=== PATIENT | male | born 1980 | race Caucasian/White ===

== ENCOUNTER 2020-03-18 18:15 | Inpatient (IN) | payer OTHER, SELFPAY ==
[2020-03-18] VITALS (49 sets, daily range): BP systolic 115–176; BP diastolic 74–111; PULSE 67–122; RESP 13–28; TEMP 36.8–37.1; O2SAT 92–100; BMI 32.5
--- NOTE | 2020-03-18 18:18 | ECG_ITS ---
Measurements Intervals [place] Rate: 75 P: 36 IL: 149 QRS: 3 QRSD: 104 T: 19 QT: 386 QTc: 433 SINUS RHYTHM Compared to ECG 09/16/2019 06:41:56 Atrial fibrillation no longer present Electronically Signed On 03-19-2020 14:58:50 CDT by Ra Masters M.D. [email or web address]
--- NOTE | 2020-03-18 18:25 | ED_ITS ---
HPI - Psych General: Chief Complaint: Psychiatric Symptoms Stated Complaint: SUICIDE ATTEMPT Time Seen by Provider: 03/18/20 18:18 Source: EMS Mode of arrival: EMS Limitations: other (not cooperative) History of Present Illness: HPI Narrative: Patient is a 40-year-old with history of alcoholism. Patient's found out he was having an affair and she moved out last night. Patient got drunk today and sent out a mass texting using to kill himself. EMS was called he was found with an extension cord around his neck and he stated he had taken pills to kill himself. Patient will not say how many pills or what he took. Patient will not answer any my questions. He is awake and responsive. He did have metoprolol along with Prozac and lisinopril available and all pill bottles do have pills in them. Review of Systems General: Reports: ROS unobtainable due to medical condition PFSH ED PFSH: Social History Smoking and tobacco status: current every day smoker Physical Exam Const: GENERAL APPEARANCE: disheveled; not cooperative HENMT: COMMON NORMALS: normocephalic and head/scalp atraumatic HEAD & SCALP: normocephalic and atraumatic Eye: COMMON NORMALS: PERRL and EOMs intact bilaterally PUPIL: Yes PERRL Neck/C-Spine: COMMON NORMALS: full ROM and supple OTHER: Slight contusion to his neck no carotid bruits noted Chest: COMMONS NORMALS: inspection of chest normal and palpation of chest normal Resp: COMMON NORMALS: normal respiratory effort, no retractions, no use of accessory muscles and clear to auscultation bilaterally AUSCULTATION: clear to auscultation bilaterally Cardio: COMMON NORMALS: regular rate, regular rhythm and no murmurs RATE: regular rate RHYTHM: regular rhythm GI: COMMON NORMALS: normal to inspection, nondistended, normoactive bowel sounds, soft to palpation, non-tender and no masses PALPATION: Yes soft Extremity: COMMON NORMALS: normal to inspection and full ROM Neuro: COMMON NORMALS: moves all extremities and no focal motor deficits Psych: APPEARANCE: Yes disheveled ATTITUDE: Yes withdrawn, Yes uncooperative and Yes evasive Skin: COMMON NORMALS: no rashes or lesions noted and no wounds GENERAL SKIN EXAM: no rashes or lesions noted MDM - Psych MDM Narrative: Medical decision making narrative: Patient presents here with alcohol talks occasionally with overdose in an attempt to kill himself. Patient is under a 96-hour hold. He will not state how many pills he took and will admit to the ICU for further evaluation. Patient's lab work and vitals here are all normal. Lab Data: Labs: Lab Results 03/18/20 03/18/20 Range/Units 18:04 18:04 WBC 9.1 (4.0-10.0) 10^3/ uL RBC 5.39 H (4.1-5.3) 10^6/u L Hgb 17.6 H (11.7-16.6) g/dL Hct 50.2 (42.0-52.0) % MCV 93.1 (80-94) fL MCH 32.7 (28.0-34.0) pg MCHC 35.1 (30.0-36.0) g/dL RDW 12.4 (12.1-15.1) % Plt Count 160 (130-400) 10^3/c mm MPV 11.2 H (7.4-10.4) fL Neut % (Auto) 68.3 % Lymph % (Auto) 24.4 % [place] % (Auto) 5.7 % Eos % (Auto) 0.9 % Baso % (Auto) 0.4 % Neut # (Auto) 6.2 (1.8-7.7) 10^3/u L Lymph # (Auto) 2.2 (0.8-4.8) 10^3/u L [place] # (Auto) 0.5 (0.2-0.9) 10^3/u L Eos # (Auto) 0.1 (0.0-0.8) 10^3/u L Baso # (Auto) 0.0 (0.0-0.1) 10^3/u L Nucleated RBC % (a uto) 0 % Nucleated RBCs # 0.0 /100WBC Sodium 137 (136-145) mmol/L Potassium 3.4 L (3.5-5.1) mmol/L Chloride 97 L (98-107) mmol/L Carbon Dioxide 22 (22-29) mmol/L Anion Gap 21.4 H (5-19) BUN 11 (6-20) mg/dL Creatinine 1.1 (0.7-1.2) mg/dL GFR Calculation 74.1 L (90-130) mL/min Glucose 118 H (65-115) mg/dL Calculated Osmolal ity 281 L (285-295) mOsm/k g Calcium 9.3 (8.5-10.5) mg/dL Total Bilirubin 0.4 (0.15-1.2) mg/dL AST 28 (0-40) U/L ALT 26 (0-41) U/L Alkaline Phosphata se 66 (40-130) IU/L Total Protein 7.5 (6.6-8.7) g/dL Albumin 4.6 (3.5-5.2) g/dL Globulin 2.9 (1.3-4.6) g/dL Salicylates < 0.3 L (3-10) mg/dL Acetaminophen < 5.0 L (10-30) ug/mL Ethyl Alcohol 361 H* (0-10) mg/dL Critical Care Time Critical Care Time: Critical Care Time: Yes Total Critical Care Time: 36 Attestation: This case had a high probability of a clinically significant, sudden, or life threatening deterioration of this patient's condition which required my full and direct attention, intervention and personal management. Discharge Plan Discharge Clinical Impression: Suicidal ideation, Overdose, Alcohol intoxication Condition: Stable Prescriptions: No Action metoprolol tartrate 50 mg tablet RF: 0 paroxetine HCl 20 mg tablet PO RF: 0 Referrals: Cody Pickens MD [Primary Care Provider] - Coding Level of Care Code ED Supervisor Malted Milk for g Fwd Exam Comprehensive
[2020-03-18 18:37] LABS: Basophils % 0.4 %; Eosinophils # 0.1 10^3/uL (0.0-0.8); Eosinophils % 0.9 %; Hematocrit 50.2 % (42.0-52.0); Hemoglobin 17.6 g/dL (11.7-16.6); Lymphocytes # 2.2 10^3/uL (0.8-4.8); Lymphocytes % 24.4 %; Mean Corpuscular HGB Conc 35.1 g/dL (30.0-36.0); Mean Corpuscular Hemoglobin 32.7 pg (28.0-34.0); Mean Corpuscular Volume 93.1 fL (80-94); Mean Platelet Volume 11.2 fL (7.4-10.4); Monocytes # 0.5 10^3/uL (0.2-0.9); Monocytes % 5.7 %; Neutrophils # 6.2 10^3/uL (1.8-7.7); Neutrophils % 68.3 %; Nucleated Red Blood Cells % 0 %; Platelet Count 160 10^3/cmm (130-400); Red Blood Count 5.39 10^6/uL (4.1-5.3); Red Cell Distribution Width 12.4 % (12.1-15.1); White Blood Count 9.1 10^3/uL (4.0-10.0)
[2020-03-18 19:00] LABS: Alanine Aminotransferase 26 U/L (0-41); Albumin Level 4.6 g/dL (3.5-5.2); Alkaline Phosphatase 66 IU/L (40-130); Anion Gap 21.4 (5-19); Aspartate Amino Transferase 28 U/L (0-40); Blood Urea Nitrogen 11 mg/dL (6-20); Calcium 9.3 mg/dL (8.5-10.5); Carbon Dioxide 22 mmol/L (22-29); Chloride 97 mmol/L (98-107); Creatinine Clr Calc Pharmacy 103.9596; Globulin 2.9 g/dL (1.3-4.6); Glomerular Filtration Rate 74.1 mL/min (90-130); Glucose 118 mg/dL (65-115); Osmolality Calculated 281 mOsm/kg (285-295); Potassium 3.4 mmol/L (3.5-5.1); Sodium 137 mmol/L (136-145); Total Bilirubin 0.4 mg/dL (0.15-1.2); Total Protein 7.5 g/dL (6.6-8.7)
[2020-03-18 19:13] LABS: Acetaminophen < 5.0 ug/mL (10-30); Salicylate < 0.3 mg/dL (3-10)
[2020-03-18 19:14] LABS: Alcohol Level 361 mg/dL (0-10)
[2020-03-18] MEDS: sodium chloride 0.9% 1,000 ML 999 ML IV (19:42)
[2020-03-18 20:29] LABS: Amphetamines Screen Urine Negative (Negative); Barbiturates Screen Urine Negative (Negative); Benzodiazepines Screen Urine Negative (Negative); Cocaine Screen Urine Negative (Negative); Opiate Screen Urine Negative (Negative); PCP Screen Urine Negative (Negative); THC Screen Urine Negative (Negative)
--- NOTE | 2020-03-18 20:57 | PC.NURSE ---
Pt. transported to ICU by RN and security. Calm, cooperative and stable
[2020-03-18] MEDS: folic acid 1 MG, multivitamin inj 10 ML, thiamine 100 MG in sodium chloride 0.9% 1,000 ML 252.8 MG IV (22:24)
[2020-03-19] VITALS (77 sets, daily range): BP systolic 103–166; BP diastolic 62–109; PULSE 74–112; RESP 14–26; TEMP 36.6–37.1; O2SAT 93–100
[2020-03-19 04:48] LABS: Basophils % 0.9 %; Eosinophils # 0.1 10^3/uL (0.0-0.8); Eosinophils % 2.8 %; Hematocrit 46.7 % (42.0-52.0); Hemoglobin 15.9 g/dL (11.7-16.6); Lymphocytes # 1.8 10^3/uL (0.8-4.8); Lymphocytes % 41.3 %; Mean Corpuscular Hemoglobin 31.7 pg (28.0-34.0); Mean Corpuscular Volume 93.2 fL (80-94); Mean Platelet Volume 11.1 fL (7.4-10.4); Monocytes # 0.4 10^3/uL (0.2-0.9); Monocytes % 9.6 %; Neutrophils # 1.9 10^3/uL (1.8-7.7); Neutrophils % 44.9 %; Nucleated Red Blood Cells % 0 %; Platelet Count 142 10^3/cmm (130-400); Red Blood Count 5.01 10^6/uL (4.1-5.3); Red Cell Distribution Width 12.6 % (12.1-15.1); White Blood Count 4.3 10^3/uL (4.0-10.0)
[2020-03-19 05:12] LABS: Alanine Aminotransferase 21 U/L (0-41); Alcohol Level 170 mg/dL (0-10); Alkaline Phosphatase 58 IU/L (40-130); Anion Gap 17.6 (5-19); Aspartate Amino Transferase 22 U/L (0-40); Blood Urea Nitrogen 12 mg/dL (6-20); Calcium 8.9 mg/dL (8.5-10.5); Carbon Dioxide 23 mmol/L (22-29); Chloride 105 mmol/L (98-107); Creatinine Clr Calc Pharmacy 103.9596; Globulin 2.2 g/dL (1.3-4.6); Glomerular Filtration Rate 74.1 mL/min (90-130); Glucose 100 mg/dL (65-115); Osmolality Calculated 290 mOsm/kg (285-295); Potassium 3.6 mmol/L (3.5-5.1); Sodium 142 mmol/L (136-145); Total Bilirubin 0.2 mg/dL (0.15-1.2); Total Protein 6.2 g/dL (6.6-8.7)
--- NOTE | 2020-03-19 06:42 | P.HP_ITS ---
Providers/Chief Complaint Admitting Physician: Kain Recinos MD Primary Care Provider: Cody Pickens MD Chief Complaint: SUICIDE ATTEMPT History of Present Illness Tina Barbour is a 40 year old male who presented to the emergency department after concern for a suicide attempt. Per records, the patient's had decided to leave him after she found out that he had been with somebody else. Because of this the patient drank approximately 1 pint of vodka and sent out a mass text saying that he wanted to kill himself. The patient was found with access lisinopril, metoprolol and fluoxetine. There were pills in all 3 bottles still. The patient had an electrical cord wrapped around his neck. A 96-hour hold was placed due to concern that the patient was suicidal. This morning the patient states that he feels well. He does not want to talk with me about what had been going on. The patient denies that he took any pills. The patient admitted to drinking 1 pint of vodka. The patient denies any chest pains, shortness of breath, fever, cough, abdominal pain, nausea, vomiting, diarrhea, constipation. Medications/Allergies Home Medications Medication Instructions Recorded Confirmed Last Taken Type aspirin 81 mg PO DAILY 03/18/20 03/18/20 Unknown History metoprolol tartrate 50 mg PO QAM 03/18/20 03/18/20 Unknown History paroxetine HCl 20 mg PO DAILY 03/18/20 03/18/20 Unknown History Allergies Allergy/AdvReac Type Severity Reaction Status Date / Time No Known Allergies Allergy Verified 03/18/20 18:22 PFSH Acute PFSH: Medical History (Updated 03/19/20 @ 06:46 by Kain Recinos MD) History of atrial fibrillation Surgical History (Updated 03/19/20 @ 06:46 by Kain Recinos MD) H/O vasectomy Social History Smoking and tobacco status: current every day smoker Vitals/I&O/Wt Last Vital Signs Temp 98.5 F 03/19/20 04:15 Pulse 97 03/19/20 05:50 Resp 16 03/19/20 05:50 BP 113/62 03/19/20 05:50 Pulse Ox 100 03/19/20 01:00 03/18/20 03/18/20 03/19/20 14:59 22:59 06:59 Intake Total 1000 / 1000 570 / 1570 Output Total 850 / 850 Balance 1000 / 1000 -280 / 720 Weight last 48 hrs Weight 220 lb Physical Exam Narrative: EXAM NARRATIVE: General: Alert and oriented x3 Cardiac: Regular rate and rhythm without murmurs Lungs: Clear to auscultation bilaterally without wheezes, crackles or rhonchi Abdomen: Soft, nontender, no hepatosplenomegaly noted Extremities: No edema Psychiatric: The patient is withdrawn, and does not want to talk with me at this time regarding what has been going on. The patient is cooperative otherwise. Data : 03/19/20 04:10 03/19/20 04:10 A&P Assessment and plan (1) Hypertension: Status: Acute (2) Suicidal ideation: Status: Acute (3) Overdose: Status: Acute Qualifiers: Encounter type: initial encounter Injury intent: intentional self-harm Qualified Code(s): T50.902A - Poisoning by unspecified drugs, medicaments and biological substances, intentional self-harm, initial encounter (4) Alcohol intoxication: Status: Acute Additional A&P Information 1. Suicidal ideation -the patient has had a 96-hour hold placed on him from the ER. I am in agreement that he will need to be transferred to the psychiatric unit for further evaluation and treatment. He should be stable to transfer at this time. 2. Alcohol intoxication with alcoholism -the patient's alcohol levels are decreasing well and with his history of alcoholism, he should be watched in general for signs of withdrawal. Currently he is not showing no signs. 3. Possible overdose -at this time the patient is not showing signs of metoprolol overdose. I do not see other signs of fluoxetine overdose. His blood pressure is not soft enough for me to think that he overdosed on lisinopril either. He should be stable to transfer. 4. Hypertension -stable at this time. 5. History of atrial fibrillation -the patient has a history of A. fib and was converted into a sinus rhythm in August 2019. He is currently in a normal sinus rhythm with tachycardia. We will restart his metoprolol this morning. Overall his heart rate is in the low 100s at this time. This should not prevent him from transferring to inpatient psychiatry at this point. Attestations Medical Necessity Statement*: The patient is here in the ICU currently and will be transferred to the inpatient psychiatry today. He requires greater than 2 midnight stay for treatment. Coding Level of Care Code Acute Environmental Services Supervisor for g Fwd Diagnoses Hypertension I10 Suicidal ideation R45.851 Overdose T50.902A Encounter type: initial encounter Injury intent: intentional self-harm Alcohol intoxication F10.924
[2020-03-19] MEDS: metoprolol tartrate 50 mg Tablet 75 MG PO ×2 (06:47→17:02)
[2020-03-19] MEDS: multivitamin therapeutic Tablet 1 TAB PO (08:21)
[2020-03-19] MEDS: aspirin 81 mg EC Tablet PO (08:21)
[2020-03-19] MEDS: folic acid 1 mg Tablet PO (08:21)
[2020-03-19] MEDS: PARoxetine 20 mg Tablet PO (08:21)
[2020-03-19] MEDS: thiamine 100 mg Tablet PO (08:23)
--- NOTE | 2020-03-19 09:33 | PC.NURSE ---
Pt transferring to NPU room 150-1 via wc with personal belongings. Security and sitter at side. No complaints voiced at time of transfer. Report called to PIYUSH Beasley.
[2020-03-20 06:00] VITALS: BP 145/96; PULSE 74; RESP 16; TEMP 37.1; O2SAT 97
[2020-03-20 06:23] VITALS: BP 139/92; PULSE 79; RESP 17; TEMP 37.1; O2SAT 97
--- NOTE | 2020-03-20 07:54 | PM.NHP ---
Providers/Chief Complaint Admitting Physician: Kain Recinos MD Primary Care Provider: Cody Pickens MD Chief Complaint: SUICIDE ATTEMPT HPI NPU History of Present Illness Tina Barbour is a 40 year old male who presents today being transferred from another unit, after being admitted with intoxication and having sent out a mass text that he was going to kill himself. This is his second hospitalization after a significant drinking episode. The last time he was in the ICU secondary to his Afib acting up. 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 At that time, he acknowledged his depression and he was started on Prozac, but he was never able to get to an outpatient appointment to have the Prozac increased. He had previously been on Paxil with no significant improvement. That had also not be titrated due to outpatient resources in the community. He reports that he had not had significant psychiatric interventions throughout his life until about 2000. He had a child that was one and a [age], and he woke up and noted that his child was kind of purple, so he came to the emergency room and was evaluated, they could not figure out what was going on and he was air lifted to [place]. After about a month he was noted to have encephalitis and meningitis and. ultimately, they took him off of supportive treatments and he . He reports that for the first time in his life he started drinking and that escalated until about 2008, at which time he did go to a rehab and was able to stop drinking until about 2012. He then started drinking again, off and on, until he stopped again a few years ago. But since 2018, he has been back at it, not drinking daily but he acknowledges that when he drinks he does really ?tie one on.? That has been a problem and created a problem in his marriage. But what has led to this event today was he had fallen asleep and his had discovered pictures from a person that works with him at the [employer], who had sent him pictures, and he had responded to the pictures. He swears that there has been nothing other than this exchange of pictures, but that his saw it and yelled at him and went to work. She came back and continued yelling at him and then when she left for work this last time, he started drinking and then this event where he sent a mass text saying he was going to kill himself occurred, and that is what brings him here today. He reports that he has been feeling depressed, and there is a lot of stress at work, especially given the current circumstances, but overall as well. We discussed the risks, benefits, and alternatives of increasing his Prozac, and he understood and agreed to proceed as is documented in this note. PSYCHIATRIC HISTORY: As above. SUBSTANCE ABUSE HISTORY: He does smoke about a half pack of cigarettes a day. Now alcohol is once every two weeks, or maybe once a week, depending on the situation, but when he drinks he drinks heavily. This event his blood alcohol level was 361. He denies marijuana, or any other illicit drug use. He has been to a couple of rehabs. He has had one DUI. FAMILY HISTORY: He endorses non-contributory. DEVELOPMENTAL HISTORY: He denies any issues with his mother?s or delivery of him. He learned how to walk and talk and met all developmental milestones on time. He reports that he did not need speech therapy, learning support, emotional support, or special education classes. PSYCHOSOCIAL HISTORY: He reports his mom and dad were together when he was born. He does have siblings. His childhood was decent. He graduated from high school. He went to college. He endorses being a heterosexual, with the longest relationship being about twenty one years, at the end of this year. He has been once. He has had two children, one who in 2000 and would be almost 21 years old, and they have a 17 year old. He has never been in the . He denies significant anglican activity. 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 He currently lives in a house with his and child. LEGAL HISTORY: He has never been in [facility]. MEDICAL HISTORY: He denies any significant medical issues. Meds NPU Home Medications Medication Instructions Recorded Confirmed Last Taken Type aspirin 81 mg PO DAILY 03/18/20 03/18/20 Unknown History metoprolol tartrate 50 mg PO QAM 03/18/20 03/18/20 Unknown History paroxetine HCl 20 mg PO DAILY 03/18/20 03/18/20 Unknown History Allergies Allergy/AdvReac Type Severity Reaction Status Date / Time No Known Allergies Allergy Verified 03/18/20 18:22 PFSH NPU PFSH: Medical History (Updated 03/21/20 @ 10:13 by Boris Cabrera MD) History of atrial fibrillation Surgical History (Updated 03/19/20 @ 06:46 by Kain Recinos MD) H/O vasectomy Social History Smoking and tobacco status: current every day smoker Mental Status Exam MSE Comments: This is an obese, white male, with adequate dress, grooming, and eye contact. No abnormal movements, except for psychomotor retardation. Cooperative with exam in no acute distress. Speech was normal rate and volume. Mood described as depressed; affect congruent. Thought process, organized. Thought content: patient denied any suicidal or homicidal ideation, there were no delusions reported or noted, patient denied any auditory or visual hallucinations. Attention, concentration, and memory appear intact but were not formally tested. He is alert and oriented times three. Insight and judgment are improving. Vitals/I&O/Wt Last Vital Signs Temp 99.8 F H 03/20/20 22:00 Pulse 68 03/20/20 22:00 Resp 20 H 03/20/20 22:00 BP 147/101 03/20/20 22:00 Pulse Ox 97 03/20/20 22:00 Data NPU : 03/19/20 04:10 03/19/20 04:10 A&P Assessment and plan (1) Alcohol use disorder, moderate, dependence: This is a 40 year old, white male, with a long history of alcohol addiction, since the of his son in 2000, with accompanying depression for much of that time, who presents with a conflict surrounding some infidelity at home, leading to drinking behavior and additional conflicts. Continue current medication, except: Increase Prozac to 40 mg po qam. Encourage individual and milieu therapy. Continue q-15 minute checks for safety. Will work with social work team to encourage outpatient recovery programming, including sober living treatment at the highest level to which he is willing to commit. Status: Acute (2) Alcohol intoxication: Status: Acute (3) Overdose: Status: Acute Qualifiers: Encounter type: initial encounter Injury intent: intentional self-harm Qualified Code(s): T50.902A - Poisoning by unspecified drugs, medicaments and biological substances, intentional self-harm, initial encounter (4) Suicidal ideation: Status: Acute (5) Major depress dis, severe: Status: Acute (6) Bereavement: Status: Acute Involuntary Hold Information 96 Hour Hold: 96 Hour Involuntary Admission: Yes 96 Hour Hold Ending Date: 03/24/20 96 Hour Hold Ending Time: 18:35 Attestations NPU Medical Necessity Statement*: Inpatient hospitalization is medically necessary and the clinically appropriate intervention at this time. Patient will be in the hospital for over two midnights. We will monitor medications and make adjustments as indicated. Likely length of stay is three to five days. Coding Level of Care Code Acute Information Security Specialist for Abida Fwd Diagnoses Alcohol use disorder, moderate, dependence F10.20 Alcohol intoxication F10.929 Overdose T50.902A Encounter type: initial encounter Injury intent: intentional self-harm Suicidal ideation R45.851 Major depress dis, severe F32.2 Bereavement Z63.4
[2020-03-20] MEDS: metoprolol tartrate 50 mg Tablet 75 MG PO ×2 (08:45→17:29)
[2020-03-20] MEDS: thiamine 100 mg Tablet PO (08:45)
[2020-03-20] MEDS: aspirin 81 mg EC Tablet PO (08:45)
[2020-03-20] MEDS: folic acid 1 mg Tablet PO (08:45)
[2020-03-20] MEDS: PARoxetine 20 mg Tablet PO (08:48)
[2020-03-20] MEDS: fluoxetine 20 mg Capsule PO (11:23)
[2020-03-20 13:30] VITALS: BP 149/99; PULSE 70; RESP 18; TEMP 37; O2SAT 98
[2020-03-20] MEDS: trazodone 50 mg Tablet PO (20:45)
[2020-03-20] MEDS: hyDROXYzine 25 mg Capsule 50 MG PO (20:45)
--- NOTE | 2020-03-20 21:10 | PC.NURSE ---
PRN Vistaril and Trazadone given. Patient sitting in day room currently, calm and relaxed.
[2020-03-20 22:00] VITALS: BP 147/101; PULSE 68; RESP 20; TEMP 37.7; O2SAT 97
[2020-03-21 06:00] VITALS: BP 145/102; PULSE 62; RESP 18; TEMP 36.8; O2SAT 97
[2020-03-21] MEDS: fluoxetine 20 mg Capsule 40 MG PO (09:17)
[2020-03-21] MEDS: thiamine 100 mg Tablet PO (09:17)
[2020-03-21] MEDS: metoprolol tartrate 50 mg Tablet 75 MG PO ×2 (09:17→17:36)
[2020-03-21] MEDS: multivitamin therapeutic Tablet 1 TAB PO (09:19)
[2020-03-21] MEDS: folic acid 1 mg Tablet PO (09:19)
[2020-03-21] MEDS: PARoxetine 20 mg Tablet PO (09:19)
[2020-03-21] MEDS: aspirin 81 mg EC Tablet PO (09:19)
[2020-03-21 12:51] VITALS: BP 103/61; PULSE 74; RESP 18; TEMP 37; O2SAT 97
--- NOTE | 2020-03-21 13:33 | P.PN_ITS ---
Subjective NPU Subjective: Interval history: Tina presented today reporting that he is feeling better. He reports that he was able to speak with his and she reports that she wants to work things out with him, and that makes him happy. We had a conversation about his struggles with drinking and how he plans on managing that after discharge. He really was not sure exactly. We discussed the risks, benefits and alternatives of starting Naltrexone and he understood and agreed to proceed as is documented in this note. Additionally, we discussed the risks, benefits and alternatives of discontinuing the Paxil which his doctor had re-prescribed, but they had not really pressed the dose of the Prozac so we discussed the plan to see if the Prozac could be titrated to efficacy first before mixing the two medications and so he understood and agreed to discontinue the Paxil. We also discussed how he was doing and discussed the possibility of discharge tomorrow if the treatment team convenes and we can get referrals and everything in place. Mental Status Exam MSE Comments: This is an obese, white male, with adequate dress, grooming, and eye contact. No abnormal movements. Cooperative with exam in no acute distress. Speech was more normal rate and volume. Mood described as a little better; affect congruent. Thought process, organized. Thought content: patient denied any suicidal or homicidal ideation, there were no delusions reported or noted, patient denied any auditory or visual hallucinations. Attention, concentration, and memory appeared intact but were not formally tested. Alert and oriented times three. Insight and judgment are improving. Vitals/I&O/Wt Last Vital Signs Temp 98.6 F 03/21/20 12:51 Pulse 74 03/21/20 12:51 Resp 18 03/21/20 12:51 BP 103/61 03/21/20 12:51 Pulse Ox 97 03/21/20 12:51 Weight last 48 hrs Weight 108.499 kg Data NPU : 03/19/20 04:10 03/19/20 04:10 A&P Additional A&P Information (1) Alcohol use disorder, moderate, dependence: This is a 40 year old, white male, with a long history of alcohol addiction, since the of his son in 2000, with accompanying depression for much of that time, who presents with a conflict surrounding some infidelity at home, leading to drinking behavior and additional conflicts. Continue current medication, except: Start Naltrexone 50 mg po qam. Encourage individual and milieu therapy. Continue q-15 minute checks for safety. Will work with social work team to encourage outpatient recovery programming, including sober living treatment at the highest level to which he is willing to commit. (2) Alcohol intoxication: (3) Overdose: (4) Suicidal ideation: (5) Major depress dis, severe: (6) Bereavement: Involuntary Hold Information 96 Hour Hold: 96 Hour Involuntary Admission: Yes 96 Hour Hold Ending Date: 03/24/20 96 Hour Hold Ending Time: 18:35 Attestations NPU Medical Necessity Statement*: Inpatient hospitalization is medically necessary and the clinically appropriate intervention at this time. We will monitor medications and make adjustments as indicated. Likely length of stay is 1-3 days. Possible discharge tomorrow. Coding Level of Care Code Acute Electric Gas Appliances Demonstrator for Abida William
[2020-03-21] MEDS: naltrexone hcl 50 mg Tablet PO (21:01)
[2020-03-21 21:25] VITALS: BP 112/84; PULSE 69; RESP 20; TEMP 37.3; O2SAT 95
--- NOTE | 2020-03-21 23:02 | PC.NURSE ---
Pt given scheduled naltrexone and trazodone at .
[2020-03-22 06:00] VITALS: BP 140/90; PULSE 66; RESP 17; TEMP 37; O2SAT 95
[2020-03-22] MEDS: aspirin 81 mg EC Tablet PO (08:42)
[2020-03-22] MEDS: naltrexone hcl 50 mg Tablet PO (08:42)
[2020-03-22] MEDS: folic acid 1 mg Tablet PO (08:42)
[2020-03-22] MEDS: thiamine 100 mg Tablet PO (08:42)
[2020-03-22] MEDS: fluoxetine 20 mg Capsule 40 MG PO (08:43)
[2020-03-22] MEDS: multivitamin therapeutic Tablet 1 TAB PO (08:43)
[2020-03-22] MEDS: metoprolol tartrate 50 mg Tablet 75 MG PO (08:43)
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
[2020-03-22 13:01] VITALS: BP 140/90; PULSE 66; RESP 17; TEMP 37; O2SAT 95
--- NOTE | 2020-03-22 13:10 | PC.NURSE ---
discharge instructions given to patient and patient verbalized understanding of instructions. patient said his gets off work at 1500.
== END 2020-03-22 14:58 | disposition home or self-care (01) | DRG 918 ==
LOC: ER 19:36 → ICU 20:20 → NP 03-19 09:27
PROVIDERS: Admitting Provider Family Medicine; Emergency Provider Emergency Medicine; Family Provider Family Medicine; PCP Family Medicine; Visit Provider Family Medicine
DX: T50.912A Poisoning by multiple unspecified drugs, medicaments and biological substances, intentional self-harm, initial encounter (principal); Y92.009 Unspecified place in unspecified non-institutional (private) residence as the place of occurrence of the external cause; F17.210 Nicotine dependence, cigarettes, uncomplicated; F32.9 Major depressive disorder, single episode, unspecified; F10.129 Alcohol abuse with intoxication, unspecified; Z91.5 Personal history of self-harm; I48.91 Unspecified atrial fibrillation
CPT/HCPCS: 12345; 80053; 80306; 80307; 85025; 93005; 99284; A9270; J3411; J3490; J7030

== ENCOUNTER → 2020-04-16 07:59 | Outpatient (BNVA) | payer OTHER, SELFPAY | PROVIDERS: Family Provider Family Medicine; PCP Family Medicine; Visit Provider Counselor Professional | DX: Z63.4 Disappearance and death of family member (principal); F10.20 Alcohol dependence, uncomplicated; F32.2 Major depressive disorder, single episode, severe without psychotic features | CPT/HCPCS: 90834 ==

== ENCOUNTER → 2024-05-28 11:27 | Outpatient (BNVA) | payer SELFPAY | PROVIDERS: Family Provider Family Medicine; PCP Family Medicine; Visit Provider Family Medicine | DX: I10 Essential (primary) hypertension (principal); R35.0 Frequency of micturition | CPT/HCPCS: 80053; 80061; 84153 ==

== ENCOUNTER 2024-08-16 07:13 | Inpatient (IN) | payer SELFPAY ==
[2024-08-16] VITALS (46 sets, daily range): BP systolic 85–150; BP diastolic 58–113; PULSE 67–113; RESP 12–25; TEMP 36.4–36.9; O2SAT 90–99; BMI 26.6
[2024-08-16 07:20] LABS: Glucose Point of Care 82 mg/dL (70-110)
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
--- NOTE | 2024-08-16 07:40 | CTR_ITS ---
PROCEDURE INFORMATION: Exam: CT Head Without Contrast Exam date and time: 08/16/2024 8:06 AM Age: 44 years old Clinical indication: Altered mental status/memory loss. TECHNIQUE: Imaging protocol: Computed tomography of the head without contrast. Radiation optimization: All CT scans at this facility use at least one of these dose optimization techniques: automated exposure control; mA and/or kV adjustment per patient size (includes targeted exams where dose is matched to clinical indication); or iterative reconstruction. COMPARISON: No relevant prior studies available. RADIATION DOSE METRICS: Total DLP (mGy-cm): 1078.68 FINDINGS: Brain: No acute intracranial hemorrhage. No mass, mass effect or midline shift. There is no evidence of acute large vessel infarct. The subcortical and periventricular white matter is normal in attenuation. The posterior fossa is grossly unremarkable; however, it is partially obscurred by beam hardening artifact. Cerebral ventricles: The ventricles are normal in configuration. Paranasal sinuses: The visualized paranasal sinuses are clear. Mastoid air cells: No mastoid effusion. Orbital cavities: The visualized orbits are unremarkable. Bones: No acute fracture is seen. Soft tissues: No significant scalp soft tissue swelling is seen. CT/CT head wo con* [id number] IMPRESSION: No acute intracranial abnormality.
[2024-08-16 07:45] LABS: Add Urine Microscopic? NO
[2024-08-16] MEDS: haloperidol inj 5 mg/mL INJ 1 mL IVP (07:46)
[2024-08-16] MEDS: LORazepam 2 mg/mL INJ 1 mL IVP (07:50)
--- NOTE | 2024-08-16 07:52 | ECG_ITS ---
[facility] Test Date: 2024-08-16 Pat Name: Tina Barbour Department: Room: 250 Gender: Male Academic Counselor: : 1980 Requested By: Himanshu Roberto Order Number: [id number] Kailey MD: Xavier Alejandra M.D. Measurements Intervals [place] Rate: 100 P: 39 IL: 107 QRS: 17 QRSD: 101 T: 41 QT: 356 QTc: 459 Interpretive Statements SINUS TACHYCARDIA WITH SHORT IL INTERVAL ABNORMAL RHYTHM ECG INTERPRETATION BASED ON A DEFAULT AGE OF 40 YEARS Compared to ECG 03/18/2020 19:47:42 Short IL interval now present Sinus rhythm no longer present Electronically Signed On 08-16-2024 20:04:02 CDT by Xavier Alejandra M.D. [id number]
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
[2024-08-16 07:58] LABS: Basophils % 0.8 %; Eosinophils # 0.1 10^3/uL (0.0-0.8); Eosinophils % 2.4 %; Hematocrit 53.2 % (37-53); Lymphocytes # 1.8 10^3/uL (0.8-4.8); Lymphocytes % 36.8 %; Mean Corpuscular HGB Conc 35.5 g/dL (30-55); Mean Corpuscular Hemoglobin 34.4 pg (27-33); Mean Corpuscular Volume 96.9 fl (82-101); Mean Platelet Volume 10.3 fL (7.4-10.4); Monocytes # 0.3 10^3/uL (0.2-0.9); Monocytes % 5.6 %; Neutrophils # 2.67 10^3/uL (1.8-7.7); Neutrophils % 53.8 %; Nucleated Red Blood Cells % 0 %; Platelet Count 146 10^3/cmm (157-399); Red Blood Count 5.49 10^6/uL (3.85-5.65); Red Cell Distribution Width 12.9 % (12.1-15.1); White Blood Count 4.97 10^3/uL (3.29-11.43)
[2024-08-16 08:01] LABS: Amphetamines Screen Urine Negative (Negative); Barbiturates Screen Urine Negative (Negative); Benzodiazepines Screen Urine Negative (Negative); Cocaine Screen Urine Negative (Negative); Opiate Screen Urine Negative (Negative); PCP Screen Urine Negative (Negative); THC Screen Urine Positive (Negative)
[2024-08-16 08:03] LABS: Alanine Aminotransferase 21 U/L (0-41); Albumin Level 4.4 g/dL (3.5-5.2); Alkaline Phosphatase 68 U/L (40-130); Anion Gap 17.4 (5-19); Aspartate Amino Transferase 23 U/L (0-40); Blood Urea Nitrogen 11 mg/dL (6-20); Calcium 8.5 mg/dL (8.5-10.5); Carbon Dioxide 25 mmol/L (22-29); Chloride 104 mmol/L (98-107); Creatinine Clr Calc Pharmacy 111.2279; Glomerular Filtration Rate 91.7 mL/min (90-130); Glucose 92 mg/dL (65-115); Osmolality Calculated 295 mOsm/kg (285-295); Sodium 143 mmol/L (136-145); Total Bilirubin 0.3 mg/dL (0.15-1.2); Total Protein 7.4 g/dL (6.6-8.7)
[2024-08-16 08:03] LABS: Bilirubin Urine Neg (Negative); Blood Urine Neg (Negative); Glucose Urine UA Norm (Normal); Ketones Urine Negative (Negative); Leukocyte Esterase Urine Negative (Negative); Nitrate Urine Negative (Negative); Protein Urine Neg (Negative); Urine Appearance Clear (CLEAR); Urine Color Yellow (Yellow); Urobilinogen Urine Neg (Negative); pH Urine 5 (5-7)
[2024-08-16 08:04] LABS: Charge for UA Resulting for Rev
--- NOTE | 2024-08-16 08:05 | PC.NURSE ---
this nurse, x2 communications technician transported pt to CT at approx 0805 on equipment monitor phototypesetting; security arrived to CT unit approx 0806. this nurse, security, communications technician removed four-point restraints @[address] scan, re-applied four-point restraints @0810 and transported pt back to ER room 12 on equipment monitor phototypesetting; each restraint has two-finger width space, cap refill <2 seconds, color appropriate for patient.
[2024-08-16 08:11] LABS: Potassium 3.4 mmol/L (3.5-5.1)
[2024-08-16 08:14] LABS: Acetaminophen < 5.0 ug/mL (10-30); Salicylate < 0.3 mg/dL (3-10)
[2024-08-16 08:15] LABS: Alcohol Level 384 mg/dL (0-10)
--- NOTE | 2024-08-16 08:16 | PC.NURSE ---
this nurse, x2 mechanical tech transported pt to CT at approx 0810 on director of cardiac cath lab; security arrived to CT unit approx 0811. this nurse, security, mechanical tech removed four-point restraints @[address] scan, re-applied four-point restraints @0810 and transported pt back to ER room 12 on director of cardiac cath lab; each restraint has two-finger width space, cap refill <2 seconds, color appropriate for patient.
--- NOTE | 2024-08-16 08:21 | XRR_ITS ---
PROCEDURE INFORMATION: Exam: XR Chest Exam date and time: 08/16/2024 8:28 AM Age: 44 years old Clinical indication: Altered mental status TECHNIQUE: Imaging protocol: Radiologic exam of the chest. Views: 1 view. COMPARISON: CR XR chest 1V [id number] 09/15/2019 7:31 AM FINDINGS: Lungs: No pulmonary consolidation. Pleural spaces: No pleural effusion. No pneumothorax. Heart/Mediastinum: The cardiac silhouette is approximately unchanged. No gross evidence of pneumomediastinum. Bones/joints: No gross fracture. XR/XR chest 1V portable [id number] IMPRESSION: No acute cardiopulmonary abnormality identified.
[2024-08-16] MEDS: lactated ringers 1,000 ML 999 ML IV (08:29)
[2024-08-16 09:11] LABS: Base Excess VBG -3.2 mmol/L (-3.0-3.0); Blood Gas Operator Identificat CAK; Blood Gas Sample Type Venous; HCO3 VBG 24.1 mmol/L (24-28); Oxygen Device ROOM AIR; PCO2 VBG 49.7 mmHg (41-51); PO2 VBG 47.7 mmHg (25-40); Venous Blood Gas Hematocrit 53.9 % (42-52); pH VBG 7.29 (7.32-7.42)
--- NOTE | 2024-08-16 09:26 | PC.NURSE ---
this nurse spoke with ED physician regarding restraints, this nurse and ED physician feel it is safe to remove BLE restraints, but deem it is unsafe to remove BUE restraints. this nurse removed bilateral ankle restraints, confirmed circulatory is within normal limits and two finger width on bilateral wrist restraints. pt still unresponsive to verbal command, respirations even and unlabored at this time. pt still on 2L NC. pt significant other at bedside
[2024-08-16 09:32] LABS: Reflex Lactate Order REFLEX LACTIC ORDERD
--- NOTE | 2024-08-16 09:40 | PC.NURSE ---
oxygen NC removed, pt 98% on room air. pt significant other states pt has been intermittently alert and talking.
--- NOTE | 2024-08-16 09:51 | PC.NURSE ---
pt family came to nurse's station, states pt needs to urinate. this nurse responded to room, pt intermittently alert, states he will not hurt anyone, calm and cooperative at time of assessment. this nurse removed RUE restraint, LUE remains. urinal handed to pt S/O. Dr. Roberto notified of RUE restraint removed.
--- NOTE | 2024-08-16 10:41 | PC.NURSE ---
Dr. Roberto notified of LUE restraint removal
[2024-08-16 10:50] LABS: Lactic Acid level (Lactate) 4.4 mmol/L (0.5-2.2)
[2024-08-16] MEDS: sodium chloride 0.9% 1,000 ML 999 ML IV (11:30)
--- NOTE | 2024-08-16 12:21 | P.HP_ITS ---
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 Workup is unremarkable, he carries history of A-fib takes aspirin and metoprolol. At the time of evaluation patient is awake and alert restraints are off Doing well He is on CIWA protocol, CIWA score is 0 at the time of my evaluation As per the patient had severe depression history, he tried to hurt himself in the past but recently no recent event, patient not endorsing suicidal ideation, Review of Systems 2 Const: Denies: fever(s) Eyes: Denies: change in vision ENMT: Denies: throat pain Card: Denies: chest pain Resp: Denies: dyspnea GI: Reports: nausea Medications/Allergies Home Medications Medication Instructions Recorded Confirmed Last Taken Type aspirin 81 mg tablet,delayed 81 mg PO DAILY 03/18/20 05/28/24 Unknown History release trazodone 150 mg tablet 150 mg PO .QHS sleep #30 tabs 01/09/23 05/28/24 Unknown Rx metoprolol tartrate 50 mg tablet See Rx Instructions .Route 05/26/24 05/28/24 Unknown Rx .COMPLEX #180 tabs terazosin 2 mg capsule 2 mg PO DAILY #30 caps 05/28/24 05/28/24 Unknown Rx Allergies Allergy/AdvReac Type Severity Reaction Status Date / Time No Known Allergies Allergy Verified 03/18/20 18:22 PFSH Acute 2 PFSH: Medical History History of atrial fibrillation Surgical History H/O vasectomy Social History Smoking and tobacco/nicotine status: unknown if used tobacco/nicotine Current gender identity: Male Vitals/I&O/Wt Last Vital Signs Temp 97.5 F L 08/16/24 07:14 Pulse 83 08/16/24 11:40 Resp 17 08/16/24 11:40 BP 92/63 08/16/24 11:40 Pulse Ox 96 08/16/24 11:40 O2 Del Method Room Air 08/16/24 10:00 O2 Flow Rate 2 08/16/24 08:30 08/15/24 08/16/24 08/16/24 22:59 06:59 14:59 Intake Total 1000 / 1000 Balance 1000 / 1000 Weight last 48 hrs Weight 81.647 kg Physical Exam 2 Narrative: Awake and alert No active signs of dehydration CIWA score 0 Nonfocal neuroexam Pleasant and cooperative GCS 15 Afebrile Pleasant and cooperative during my evaluation No active suicidal ideation Data 08/16/24 07:21 08/16/24 07:21 A&P Assessment and plan (1) Anxiety: (2) Depression: (3) Alcohol intoxication: (4) Hypertension: (5) Delirium: Plan Alcohol induced delirium CIWA score 0 Would only use Ativan for now No need of phenobarbital Physical and chemical restraints terminated Hemodynamically stable High lactic acid: No signs of infection Patient not endorsing any history of seizure Dehydration related, versus starvation? Continue IV fluids A-fib without RVR Continue aspirin and metoprolol Hypokalemia: Will give p.o. potassium check magnesium level Disposition: Likely will be discharged within next 24 hours Cardiac diet for now DVT prophylaxis: Lovenox Attestations 2 Medical Necessity Statement*: Anticipating discharge within 48 hours Diagnoses Anxiety F41.9 Depression F32.A Alcohol intoxication F10.929 Hypertension I10 Delirium R41.0
--- NOTE | 2024-08-16 12:50 | PC.NURSE ---
pt awake and alert, this nurse updated pt on status of admit, pt compliant, denies any further needs/questions at this time.
[2024-08-16 12:52] LABS: Creatine Phosphokinase 243 U/L (39-308)
--- NOTE | 2024-08-16 12:52 | PC.NURSE ---
report called to Bettie on Med-Surg, no further questions. pt transported to PR via wheelchair by medical equipment repair technician and security.
--- NOTE | 2024-08-16 13:07 | PC.NURSE ---
Admission being completed slowly d/t pt being easy to anger. 1:1 sitter ordered d/t mentation and suicide assessment.
[2024-08-16] MEDS: sodium chloride 0.9% 1,000 ML 75 ML IV (14:19)
[2024-08-16] MEDS: potassium chloride ER 20 mEq Tablet 40 MEQ PO (15:26)
[2024-08-16] MEDS: pantoprazole 40 mg SDV IVP (18:07)
--- NOTE | 2024-08-16 18:10 | PC.NURSE ---
RN Stringed Instrument Tuner at [facility] calls and asks for pt update. This RN explains that he is not on the PHI, but I will let pt know that he called. Pt states that he does not want any information given to him.
[2024-08-17] VITALS (7 sets, daily range): BP systolic 150–167; BP diastolic 83–108; PULSE 84–97; RESP 17–18; TEMP 36.5–37.2; O2SAT 93–98
[2024-08-17] MEDS: sodium chloride 0.9% 1,000 ML 75 ML IV (02:08)
[2024-08-17 03:06] LABS: Basophils # 0.1 10^3/uL (0.0-0.1); Basophils % 0.7 %; Eosinophils # 0.1 10^3/uL (0.0-0.8); Eosinophils % 1.3 %; Hematocrit 49.9 % (37-53); Lymphocytes # 1.4 10^3/uL (0.8-4.8); Lymphocytes % 20.3 %; Mean Corpuscular HGB Conc 35.9 g/dL (30-55); Mean Corpuscular Hemoglobin 34.6 pg (27-33); Mean Corpuscular Volume 96.5 fl (82-101); Mean Platelet Volume 10.3 fL (7.4-10.4); Monocytes # 0.5 10^3/uL (0.2-0.9); Monocytes % 6.7 %; Neutrophils # 4.83 10^3/uL (1.8-7.7); Neutrophils % 70.7 %; Nucleated Red Blood Cells % 0 %; Platelet Count 150 10^3/cmm (157-399); Red Blood Count 5.17 10^6/uL (3.85-5.65); Red Cell Distribution Width 12.6 % (12.1-15.1); White Blood Count 6.84 10^3/uL (3.29-11.43)
[2024-08-17 03:29] LABS: Anion Gap 17.1 (5-19); Blood Urea Nitrogen 9 mg/dL (6-20); Calcium 8.4 mg/dL (8.5-10.5); Carbon Dioxide 23 mmol/L (22-29); Chloride 102 mmol/L (98-107); Creatinine Clr Calc Pharmacy 143.0072; Glomerular Filtration Rate 122.5 mL/min (90-130); Glucose 80 mg/dL (65-115); Magnesium 1.5 mg/dL (1.7-2.3); Osmolality Calculated 284 mOsm/kg (285-295); Phosphorus 2.3 mg/dL (2.5-4.5); Potassium 4.1 mmol/L (3.5-5.1); Sodium 138 mmol/L (136-145)
[2024-08-17] MEDS: folic acid 1 mg Tablet PO (08:59)
[2024-08-17] MEDS: metoprolol tartrate 50 mg Tablet PO (08:59)
[2024-08-17] MEDS: multivitamin therapeutic Tablet 1 TAB PO (08:59)
[2024-08-17] MEDS: magnesium oxide 400 mg tablet PO ×2 (08:59→18:27)
[2024-08-17] MEDS: aspirin 81 mg EC Tablet PO (09:00)
[2024-08-17] MEDS: thiamine 100 mg Tablet PO (09:01)
--- NOTE | 2024-08-17 09:23 | PC.NURSE ---
IV out. Pt refused a new one until Dr. Lund sees him.
--- NOTE | 2024-08-17 15:03 | PM.PN ---
Subjective Subjective: The patient states that he feels better today. He does not remember much of yesterday. His is at bedside with him today. The patient states that he has been having increased problems with alcohol again since earlier this year. He had been through rehab a couple of times in the past and had done very well without alcohol for 4 to 5 years stents, however since he lost a close family member earlier this year he has been drinking a pint of vodka every other day. He states that he would like to get into rehab again as it seemed to be very helpful for him in the past. He is committed to getting sober again. Vitals/I&O/Wt Last Vital Signs Temp 97.9 F 08/17/24 14:53 Pulse 84 08/17/24 14:53 Resp 18 08/17/24 09:55 BP 152/106 08/17/24 14:53 Pulse Ox 97 08/17/24 14:53 O2 Del Method Room Air 08/17/24 14:53 O2 Flow Rate 2 08/16/24 08:30 08/17/24 08/17/24 08/17/24 06:59 14:59 22:59 Intake Total 1126.25 / 3366.25 1536.25 / 1536.25 Output Total 600 / 600 Balance 526.25 / 2766.25 1536.25 / 1536.25 Weight last 48 hrs Weight 198 lb 8 oz Weight 180 lb Weight 180 lb Physical Exam Narrative: General: Alert and oriented x 3. In no acute distress. Eyes: PERRLA, EOM intact, no discharge. Mouth: No erythema or tonsilar enlargement. No masses noted. Neck: No thyromegaly. No lymphadenopathy. Heart: Regular rate and rhythm. No murmurs. Lungs: Clear to auscultation bilaterally. No wheezes, crackles or ronchi. Abdomen: Soft, non-tender. No hepatosplenomegaly. Extremities: No pitting edema. Psych: Depressed mood and affect. Open to counseling. sitting at bedside. Data 08/17/24 02:44 08/17/24 02:44 A&P Assessment and plan (1) Alcohol intoxication: The patient was admitted with alcohol intoxication after being found lying in the grass outside of his workplace at [employer]. 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 Currently he is doing well and has not needed any Ativan. His blood pressure has increased some and we will go ahead and give a one-time dose of hydralazine and increase his metoprolol up to 100 mg twice a day. The patient will be given thiamine and folic acid to reduce risk of deficiency related complications. Outside of his elevated blood pressure, the patient is stable for transfer at this time. (2) Depression: I spoke with Dr. Cabrera regarding the patient's case and he recommended that due to the patient's history of depression and psychiatric history with history of self harm, that it would be best for him to be transferred to the Neuropsych Unit for further evaluation and treatment. Please see his notes for full details. (3) Hypertension: (4) Delirium: This has cleared and the patient is speaking clearly to myself with his in the room. This was related to alcohol intoxication based on findings. (5) Hypomagnesemia: The patient's magnesium will be replaced. Start magnesium oxide 400 mg twice a day. Attestations Medical Necessity Statement*: The patient will be admitted through the Neuropsych Unit due to the above. His stay will cross 2 midnights. Coding Level of Care Code Acute Code for [facility] Fwd Diagnoses Alcohol intoxication F10.929 Depression F32.A Hypertension I10 Delirium R41.0 Hypomagnesemia E83.42
--- NOTE | 2024-08-17 15:20 | P.NPUHP_ITS ---
Providers/Chief Complaint 2 Admitting Physician: Kishore Palacios MD Primary Care Provider: Cody Pickens MD Chief Complaint: AMS HPI NPU History of Present Illness Tina Barbour is a 44 year old male who presented to the ED with the following report: Chief Complaint: Altered Mental Status Stated Complaint: AMS Time Seen by Provider: 08/16/24 07:38 Source: patient and EMS Mode of arrival: EMS History of Present Illness: This patient was transported from his workplace. 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 He was noted to be not of his workstation and out in a grassy or field area near the [facility] and EMS was called. They found him to be in that location and persuaded him to be transported to the emergency department. They state that he was intermittently combative during that transportation and then intermittently cooperative and lucid. There is limited history otherwise. The patient denies any symptoms and states that nothing is wrong with him and he would like to be allowed to leave. complaint: altered mental status. He was admitted to [facility] for definitive treatment of those issues given concerns for his altered mental status. 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 His last admission was in February 2020. An excerpt of that discharge summary is included below for context. He presented today reporting: Chief complaint The patient continues to express concern about his escalating alcohol consumption and its impact on his work and personal life. He acknowledges the need for help and is willing to take steps towards recovery. History of the present complaint The 44-year-old male patient has been struggling with escalating alcohol consumption, which has led to a loss of control over his behavior and violent incidents. He has expressed thoughts of being better off not existing, which prompted him to seek medical help. His alcohol consumption has been increasing, with an average intake of about a pint a day. He also reported daily tobacco use, smoking one to two packs a day, and daily cannabis use. The patient has a history of psychiatric hospitalization, which occurred approximately four to five years ago. He attempted to seek outpatient follow-up care, but due to the COVID-19 pandemic and long waiting times, he did not receive the necessary care. He acknowledged that he should have continued seeking help even after the immediate crisis had passed. The patient reported that he had been prescribed Naltrexone in the past but stopped taking it. He did not provide a specific reason for discontinuing the medication. He has been to rehab twice in the past. The first time was unsuccessful, but the second time resulted in approximately seven years of sobriety. His last stint in rehab was in 2012, and he remained sober until around 2020. He has two DUIs on his record, both of which led to his rehab stays. The patient described a recent incident at work where he consumed alcohol before leaving, leading to him collapsing and being found unresponsive. His blood alcohol level was reported to be 384 upon arrival at the hospital. He reported that he had been drinking on and off since November, with his consumption escalating after the of his father. He had been completely abstinent from alcohol for about a month in October 2023. However, he started drinking more frequently after his father fell ill in August. 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 He expressed a willingness to seek help and treatment for his alcohol addiction. He also expressed fear and concern about the potential consequences of his actions, including the risk to his career in healthcare. He acknowledged the need for honesty and accountability in his journey towards recovery. The patient also expressed a desire to quit smoking, acknowledging the financial and health implications of his tobacco use. He was advised that honesty and transparency would be galvez in his recovery journey, and that he should aim to eliminate all harmful substances from his life at once, rather than tackling one addiction at a time. The patient agreed to an official evaluation and assistance, recognizing the need for professional help in overcoming his addiction. He expressed a willingness to stay in the hospital for a few days to ensure his safety and to set up a treatment plan. He was advised that honesty and accountability would be galvez in his recovery journey. Mental health history No new information was provided in this section of the consultation. Social history The patient acknowledges that his alcohol consumption has been escalating rapidly since his father's . He also expresses a desire to quit smoking, recognizing the negative impact it has on his health and finances. Per his 03/22/2020 [facility] inpatient psychiatric discharge summary: Diagnoses at Discharge Discharge Diagnosis (1) Alcohol use disorder, moderate, dependence: Status: Acute (2) Alcohol intoxication: Status: Acute (3) Overdose: Status: Acute Qualifiers: Encounter type: initial encounter Injury intent: intentional self-harm Qualified Code(s): T50.902A - Poisoning by unspecified drugs, medicaments and biological substances, intentional self-harm, initial encounter (4) Suicidal ideation: Status: Acute (5) Major depress dis, severe: Status: Acute (6) Bereavement: Status: Acute Reason for Visit Reason for Visit: Reason For Visit: SUICIDE ATTEMPT Brief History: History of Present Illness Tina Barbour is a 40 year old male who presents today being transferred from another unit, after being admitted with intoxication and having sent out a mass text that he was going to kill himself. This is his second hospitalization after a significant drinking episode. The last time he was in the ICU secondary to his Afib acting up. 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 At that time, he acknowledged his depression and he was started on Prozac, but he was never able to get to an outpatient appointment to have the Prozac increased. He had previously been on Paxil with no significant improvement. That had also not be titrated due to outpatient resources in the community. He reports that he had not had significant psychiatric interventions throughout his life until about 2000. He had a child that was one and a [age], and he woke up and noted that his child was kind of purple, so he came to the emergency room and was evaluated, they could not figure out what was going on and he was air lifted to [place]. After about a month he was noted to have encephalitis and meningitis and. ultimately, they took him off of supportive treatments and he . He reports that for the first time in his life he started drinking and that escalated until about 2008, at which time he did go to a rehab and was able to stop drinking until about 2012. He then started drinking again, off and on, until he stopped again a few years ago. But since 2018, he has been back at it, not drinking daily but he acknowledges that when he drinks he does really ?tie one on.? That has been a problem and created a problem in his marriage. But what has led to this event today was he had fallen asleep and his had discovered pictures from a person that works with him at the [employer], who had sent him pictures, and he had responded to the pictures. He swears that there has been nothing other than this exchange of pictures, but that his saw it and yelled at him and went to work. She came back and continued yelling at him and then when she left for work this last time, he started drinking and then this event where he sent a mass text saying he was going to kill himself occurred, and that is what brings him here today. He reports that he has been feeling depressed, and there is a lot of stress at work, especially given the current circumstances, but overall as well. We discussed the risks, benefits, and alternatives of increasing his Prozac, and he understood and agreed to proceed as is documented in this note. PSYCHIATRIC HISTORY: As above. SUBSTANCE ABUSE HISTORY: He does smoke about a half pack of cigarettes a day. Now alcohol is once every two weeks, or maybe once a week, depending on the situation, but when he drinks he drinks heavily. This event his blood alcohol level was 361. He denies marijuana, or any other illicit drug use. He has been to a couple of rehabs. He has had one DUI. FAMILY HISTORY: He endorses non-contributory. DEVELOPMENTAL HISTORY: He denies any issues with his mother?s or delivery of him. He learned how to walk and talk and met all developmental milestones on time. He reports that he did not need speech therapy, learning support, emotional support, or special education classes. PSYCHOSOCIAL HISTORY: He reports his mom and dad were together when he was born. He does have siblings. His childhood was decent. He graduated from high school. He went to college. He endorses being a heterosexual, with the longest relationship being about twenty one years, at the end of this year. He has been once. He has had two children, one who in 2000 and would be almost 21 years old, and they have a 17 year old. He has never been in the . He denies significant mosque activity. 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 He currently lives in a house with his and child. LEGAL HISTORY: He has never been in correction. MEDICAL HISTORY: He denies any significant medical issues. Hospital Course Tina presented to the emergency room intoxicated and endorsing thoughts to hurt himself/kill himself. This is second presentation with similar concerns. However he also reported that a significant rift between him and his was really adding to these thoughts bringing him to the hospital. He was admitted to the neuro psych unit to manage these concerns. He acclimated to the individual and milieu therapies provided. We increase his Prozac to 40 mg p.o. every morning and initiated naltrexone 50 mg p.o. every morning and he adjusted to these medications well. He filled out the forms to get connected with outpatient treatment services. He and his decided to work the issues that they have been fighting about out and he was feeling more optimistic about facing the challenges of the future. Additionally we discussed him working with his therapist on bereavement issues that have likely not been truly addressed. During the hospitalization he had routine laboratory studies which were within normal limits except for a few outliers. Additionally he had a general medical evaluation which was also within normal limits and revealed no new acute processes outside of intoxication and withdrawal. Discharge Summary At the time of discharge, he denied any lethality and was absent psychosis. Mood and anxiety were well managed and he endorsed a plan to avoid all drugs of abuse, and follow-up with the recommended post hospital services. He was evaluated and deemed to be absent credible lethality and had received the maximum benefit from an inpatient hospitalization, so was discharged. Meds NPU Home Medications Medication Instructions Recorded Confirmed Last Taken Type aspirin 81 mg tablet,delayed 81 mg PO DAILY 03/18/20 08/16/24 Unknown History release metoprolol tartrate 50 mg tablet See Rx Instructions .Route 05/26/24 08/16/24 Unknown Rx .COMPLEX #180 tabs terazosin 2 mg capsule 2 mg PO DAILY #30 caps 05/28/24 08/16/24 Unknown Rx Allergies Allergy/AdvReac Type Severity Reaction Status Date / Time No Known Allergies Allergy Verified 08/16/24 21:05 PFS NPU 2 PFS: Medical History History of atrial fibrillation Surgical History H/O vasectomy Social History Smoking and tobacco/nicotine status: unknown if used tobacco/nicotine Current gender identity: Male Mental Status Exam 2 MSE Comments: This is an overweight versus obese, white male, with adequate dress, grooming, and eye contact. No abnormal movements, except for psychomotor retardation. Cooperative with exam in no acute distress. Speech was normal rate and volume. Mood described as depressed; affect congruent. Thought process, organized. Thought content: patient denied any suicidal or homicidal ideation, there were no delusions reported or noted, patient denied any auditory or visual hallucinations. Attention, concentration, and memory appear intact but were not formally tested. He is alert and oriented times three. Insight and judgment are improving. Mental status exam The patient continues to express feelings of distress and concern about his escalating alcohol consumption. He acknowledges the need for help and is willing to take steps towards recovery. He also expresses a desire to quit smoking, recognizing the negative impact it has on his health and finances. Assessment The patient is in a critical situation with escalating alcohol consumption, leading to potential errors at work and personal distress. He acknowledges the severity of his situation and expresses a willingness to seek help. He also expresses a desire to quit smoking, recognizing the negative impact it has on his health and finances. Plan The patient will be admitted to the unit for a few days for monitoring and to establish a distinct treatment plan. He will be connected with rehab and potentially the nursing board for additional resources. The patient will also be encouraged to quit smoking, with the provision of nicotine patches and gum to assist with withdrawal symptoms. The patient has agreed to this plan and is willing to take steps towards recovery. Appointments The patient will be seen by Dr. Sol during his stay in the unit. The exact date and time of the next appointment were not specified in this section of the consultation. ICD-10 codes (2) - Alcohol abuse, uncomplicated [F10.10] - Nicotine dependence, cigarettes, uncom plicated [F17.210] Vitals/I&O/Wt Last Vital Signs Temp 99.0 F 08/17/24 20:07 Pulse 90 08/17/24 20:07 Resp 18 08/17/24 20:07 BP 150/98 08/17/24 20:07 Pulse Ox 98 08/17/24 20:07 O2 Del Method Room Air 08/17/24 20:07 O2 Flow Rate 2 08/16/24 08:30 Weight last 48 hrs Weight 90.038 kg Weight 81.647 kg Data NPU 08/17/24 02:44 08/17/24 02:44 A&P Assessment and plan (1) Alcohol intoxication: (2) Overdose: Qualifiers: Encounter type: initial encounter Injury intent: intentional self-harm Qualified Code(s): T50.902A - Poisoning by unspecified drugs, medicaments and biological substances, intentional self-harm, initial encounter (3) Suicidal ideation: (4) Major depress dis, severe: (5) Bereavement: (6) Alcohol use disorder, severe, dependence: (7) Anxiety: Plan This is a 44 year old, white male, with a long history of alcohol addiction, since the of his son in 2000, with accompanying depression for much of that time, who was admitted 4+ years ago with a conflict surrounding some infidelity at home, which led to increased drinking behavior now presenting with increased drinking in a similar situation with the of a parent in november of this year. 1. Consider medication for anxiety/depression. 2. Encourage individual, group and milieu therapy. 3. Take off 1 to 1 and start q-15 minute checks for safety. 4. Transfer to NPU. 5. Will work with social work team to encourage outpatient recovery programming, including sober living treatment at the highest level to which he is willing to commit. 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 6. obtain collateral information. Involuntary Hold Information 2 96 Hour Hold: 96 Hour Involuntary Admission: No Attestations NPU 2 Medical Necessity Statement*: Inpatient hospitalization is medically necessary and the clinically appropriate intervention at this time. Patient will be in the hospital for over two midnights. We will monitor medications and make adjustments as indicated. Likely length of stay is three to five days. Coding Level of Care Code Acute Code for [facility] Fwd Diagnoses Alcohol intoxication F10.929 Overdose T50.902A Encounter type: initial encounter Injury intent: intentional self-harm Suicidal ideation R45.851 Major depress dis, severe F32.2 Bereavement Z63.4 Alcohol use disorder, severe, dependence F10.20 Anxiety F41.9
[2024-08-17] MEDS: hyDRALAzine 10 mg Tablet PO (15:31)
--- NOTE | 2024-08-17 15:37 | PC.NURSE ---
Report called to Gladys in NPU. All questions answered at this time. Will be escorted to NPU from [place] with security.
[2024-08-17] MEDS: nicotine 2 mg Gum BUCCAL (19:11)
[2024-08-17] MEDS: trazodone 50 mg Tablet PO (20:19)
[2024-08-18 04:00] VITALS: BP 139/100; PULSE 82; RESP 17; TEMP 36.4; O2SAT 98
[2024-08-18] MEDS: nicotine 4 mg lozenge MUCOUS MEM (06:51)
[2024-08-18 07:12] VITALS: BP 160/103; PULSE 109; RESP 16; TEMP 37.1; O2SAT 98
[2024-08-18] MEDS: multivitamin therapeutic Tablet 1 TAB PO (08:30)
[2024-08-18] MEDS: LORazepam 2 mg Tablet PO (08:30)
[2024-08-18] MEDS: thiamine 100 mg Tablet PO (08:30)
[2024-08-18] MEDS: magnesium oxide 400 mg tablet PO ×2 (08:30→17:45)
[2024-08-18] MEDS: aspirin 81 mg EC Tablet PO (08:31)
[2024-08-18] MEDS: metoprolol tartrate 50 mg Tablet 100 MG PO ×2 (08:31→17:44)
[2024-08-18] MEDS: folic acid 1 mg Tablet PO (08:31)
[2024-08-18] MEDS: nicotine 2 mg Gum BUCCAL (08:32)
--- NOTE | 2024-08-18 08:52 | PC.NURSE ---
Patient scored 10 on CIWA. Per protocol, administered ativan 2mg PO to patient
[2024-08-18 11:51] VITALS: BP 146/100; PULSE 75; RESP 16; TEMP 36.7; O2SAT 99
[2024-08-18 14:10] VITALS: BP 136/92; PULSE 89; RESP 16; TEMP 36.9; O2SAT 98
--- NOTE | 2024-08-18 17:25 | PC.NURSE ---
Patient said that [facility] in [place] might have bed available tomorrow. They will know tomorrow between 0900 and 0930. Patient will need to be in [place] by [address] if accepted[address] Nicole and Dr. Sol made aware.
--- NOTE | 2024-08-18 17:41 | W.PM.NPUPNS ---
Subjective NPU Subjective: 44-year-old male with a history of depression and alcohol dependence admitted with suicidal ideation with a blood alcohol level of 384. Patient had reported that he had periods of sobriety but relapsed earlier this year. He reports drinking approximately 1 pint of alcohol daily. He had reported a past history of DUI and reported that he had had no prior issues with work but did endorse having consumed alcohol while working. He had reported motivation at wanting to find an inpatient substance abuse facility to be transferred to at this time. He had reported having worsening depression and stated that he continued to struggle with significant drinking since the of his son in 2000. He was agreeable to starting medications to use target depression again. She is already why he had reported having increased problems with memory since he had resumed his alcohol consumption. Consequences of Mental Status Exam MSE Comments: This is an obese, white male, with poor grooming, rosanna complexion. No abnormal involuntary motor movements, except for psychomotor retardation. Cooperative with exam in no acute distress. Speech was normal rate and volume. Mood described as depressed; affect was mood congruent and restricted. Thought process was linear and organized. Thought content: patient denied any suicidal or homicidal ideation, there were no delusions reported or noted, patient denied any auditory or visual hallucinations. Attention, concentration, and memory appear intact but were not formally tested. He is alert and oriented times three. Insight was poor, judgment was poor. His impulse control was poor. Vitals/I&O/Wt Last Vital Signs Temp 98.5 F 08/18/24 14:10 Pulse 89 08/18/24 14:10 Resp 16 08/18/24 14:10 BP 136/92 08/18/24 14:10 Pulse Ox 98 08/18/24 14:10 O2 Del Method Room Air 08/18/24 14:10 O2 Flow Rate 2 08/16/24 08:30 08/18/24 08/18/24 08/18/24 06:59 14:59 22:59 Intake Total 480 / 480 480 / 960 Output Total 600 / 600 600 / 1200 Balance -120 / -120 -120 / -240 Weight last 48 hrs Weight 90.038 kg Data NPU 08/17/24 02:44 08/17/24 02:44 A&P Assessment and plan (1) Alcohol intoxication: (2) Overdose: Qualifiers: Encounter type: initial encounter Injury intent: intentional self-harm Qualified Code(s): T50.902A - Poisoning by unspecified drugs, medicaments and biological substances, intentional self-harm, initial encounter (3) Suicidal ideation: (4) Major depress dis, severe: (5) Bereavement: (6) Alcohol use disorder, severe, dependence: (7) Anxiety: Plan This is a 44 year old, white male, with a long history of alcohol addiction, since the of his son in 2000, with accompanying depression for much of that time, who was admitted 4+ years ago with a conflict surrounding some infidelity at home, which led to increased drinking behavior now presenting with increased drinking in a similar situation with the of a parent in november of this year. 1. Restart Prozac 20mg to target depression. 2. Encourage individual, group and milieu therapy. 3. Take off 1 to 1 and start q-15 minute checks for safety. 4. Consider inpatient substance abuse treatment. 5. Will work with social work team to encourage outpatient recovery programming, including sober living treatment at the highest level to which he is willing to commit. 6. obtain collateral information. Involuntary Hold Information 96 Hour Hold: 96 Hour Involuntary Admission: No Attestations NPU Medical Necessity Statement*: Inpatient hospitalization is medically necessary and the clinically appropriate intervention at this time. Patient will be in the hospital for over two midnights. We will monitor medications and make adjustments as indicated. Likely length of stay is three to five days. Coding Level of Care Code Acute Code for [facility] Fwd Diagnoses Alcohol intoxication F10.929 Overdose T50.902A Encounter type: initial encounter Injury intent: intentional self-harm Suicidal ideation R45.851 Major depress dis, severe F32.2 Bereavement Z63.4 Alcohol use disorder, severe, dependence F10.20 Anxiety F41.9
[2024-08-18] MEDS: fluoxetine 20 mg Capsule PO (18:42)
[2024-08-18 19:42] VITALS: BP 160/108; PULSE 77; RESP 16; TEMP 36.8; O2SAT 98
[2024-08-18] MEDS: trazodone 50 mg Tablet PO (20:04)
[2024-08-18] MEDS: hyDROXYzine 25 mg Capsule 50 MG PO (20:04)
[2024-08-19] VITALS: BP 128/88; PULSE 95; RESP 18; TEMP 36.5; O2SAT 98
[2024-08-19 04:00] VITALS: BP 151/98; PULSE 85; RESP 18; TEMP 36.6; O2SAT 97
[2024-08-19 08:00] VITALS: BP 137/94; PULSE 79; RESP 17; O2SAT 98
[2024-08-19] MEDS: aspirin 81 mg EC Tablet PO (09:16)
[2024-08-19] MEDS: thiamine 100 mg Tablet PO (09:16)
[2024-08-19] MEDS: folic acid 1 mg Tablet PO (09:16)
[2024-08-19] MEDS: multivitamin therapeutic Tablet 1 TAB PO (09:16)
[2024-08-19] MEDS: fluoxetine 20 mg Capsule PO (09:17)
[2024-08-19] MEDS: magnesium oxide 400 mg tablet PO (09:17)
[2024-08-19] MEDS: metoprolol tartrate 50 mg Tablet 100 MG PO (09:17)
--- NOTE | 2024-08-19 10:32 | P.NPUDS_ITS ---
Diagnoses at Discharge Discharge Diagnosis (1) Alcohol intoxication: Status: Acute (2) Overdose: Status: Acute Qualifiers: Encounter type: initial encounter Injury intent: intentional self-harm Qualified Code(s): T50.902A - Poisoning by unspecified drugs, medicaments and biological substances, intentional self-harm, initial encounter (3) Suicidal ideation: Status: Acute (4) Major depress dis, severe: Status: Acute (5) Bereavement: Status: Resolved (6) Alcohol use disorder, severe, dependence: Status: Acute (7) Anxiety: Status: Acute Reason for Visit Reason for Visit: AMS Brief History: History of Present Illness Tina Barbour is a 44 year old male who presented to the ED with the following report: Chief Complaint: Altered Mental Status Stated Complaint: AMS Time Seen by Provider: 08/16/24 07:38 Source: patient and EMS Mode of arrival: EMS History of Present Illness: This patient was transported from his workplace. 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 He was noted to be not of his workstation and out in a grassy or field area near the [facility] and EMS was called. They found him to be in that location and persuaded him to be transported to the emergency department. They state that he was intermittently combative during that transportation and then intermittently cooperative and lucid. There is limited history otherwise. The patient denies any symptoms and states that nothing is wrong with him and he would like to be allowed to leave. MD complaint: altered mental status. He was admitted to [facility] for definitive treatment of those issues given concerns for his altered mental status. He is known to this greeting card writer through inpatient services. His last admission was in February 2020. An excerpt of that discharge summary is included below for context. He presented today reporting: Chief complaint The patient continues to express concern about his escalating alcohol consumpti on and its impact on his work and personal life. He acknowledges the need for help and is willing to take steps towards recovery. History of the present complaint The 44-year-old male patient has been struggling with escalating alcohol consumption, which has led to a loss of control over his behavior and violent incidents. He has expressed thoughts of being better off not existing, which prompted him to seek medical help. His alcohol consumption has been increasing, with an average intake of about a pint a day. He also reported daily tobacco use, smoking one to two packs a day, and daily cannabis use. The patient has a history of psychiatric hospitalization, which occurred approximately four to five years ago. He attempted to seek outpatient follow-up care, but due to the COVID-19 pandemic and long waiting times, he did not receive the necessary care. He acknowledged that he should have continued seeking help even after the immediate crisis had passed. The patient reported that he had been prescribed Naltrexone in the past but stopped taking it. He did not provide a specific reason for discontinuing the medication. He has been to rehab twice in the past. The first time was uns uccessful, but the second time resulted in approximately seven years of sobriety. His last stint in rehab was in 2012, and he remained sober until around 2020. He has two DUIs on his record, both of which led to his rehab stays. The patient described a recent incident at work where he consumed alcohol before leaving, leading to him collapsing and being found unresponsive. His blood alcohol level was reported to be 384 upon arrival at the hospital. He reported that he had been drinking on and off since November, with his consumption escalating after the of his father. He had been completely abstinent from alcohol for about a month in October 2023. However, he started drinking more frequently after his father fell ill in August. 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 He expressed a willingness to seek help and treatment for his alcohol addiction. He also expressed fear and concern about the potential consequences of his actions, including the risk to his career in healthcare. He acknowledged the need for honesty and accountability in his journey towards recovery. The patient also expressed a desire to quit smoking, acknowledging the financial and health implications of his tobacco use. He was advised that honesty and transparency would be galvez in his recovery journey, and that he should aim to eliminate all harmful substances from his life at once, rather than tackling one addiction at a time. The patient agreed to an official evaluation and assistance, recognizing the need for professional help in overcoming his addiction. He expressed a willingness to stay in the hospital for a few days to ensure his safety and to set up a treatment plan. He was advised that honesty and accountability would be galvez in his recovery journey. Mental health history No new information was provided in this section of the consultation. Social history The patient acknowledges that his alcohol consumption has been escalating rapidly since his father's . He also expresses a desire to quit smoking, recognizing the negative impact it has on his health and finances. Per his 03/22/2020 [facility] inpatient psychiatric discharge summary: Diagnoses at Discharge Discharge Diagnosis (1) Alcohol use disorder, moderate, depe ndence: Status: Acute (2) Alcohol intoxication: Status: Acute (3) Overdose: Status: Acute Qualifiers: Encounter type: initial encounter Injury intent: intentional self-harm Qualified Code(s): T50.902A - Poisoning by unspecified drugs, medicaments and biological substances, intentional self-harm, initial encounter (4) Suicidal ideation: Status: Acute (5) Major depress dis, severe: Status: Acute (6) Bereavement: Status: Acute Reason for Visit Reason for Visit: Reason For Visit: SUICIDE ATTEMPT Brief History: History of Present Illness Tina Barbour is a 40 year old male who presents today being transferred from another unit, after being admitted with intoxication and having sent out a mass text that he was going to kill himself. This is his second hospitalization after a significant drinking episode. The last time he was in the ICU secondary to his Afib acting up. 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 At that time, he acknowledged his depression and he was started on Prozac, but he was never able to get to an outpatient appointment to have the Prozac increased. He had previously been on Paxil with no significant improvement. That had also not be titrated due to outpatient resources in the community. He reports that he had not had significant psychiatric interventions throughout his life until about 2000. He had a child that was one and a [age], and he woke up and noted that his child was kind of purple, so he came to the emergency room and was evaluated, they could not figure out what was going on and he was air lifted to [place]. After about a month he was noted to have encephalitis and meningitis and. ultimately, they took him off of supportive treatments and he . He reports that for the first time in his life he started drinking and that escalated until about 2008, at which time he did go to a rehab and was able to stop drinking until about 2012. He then started drinking again, off and on, until he stopped again a few years ago. But since 2018, he has been back at it, not drinking daily but he acknowledges that when he drinks he does really ?tie one on.? That has been a problem and created a problem in his marriage. But what has led to this event today was he had fallen asleep and his had discovered pictures from a person that works with him at the fci, who had sent him pictures, and he had responded to the pictures. He swears that there has been nothing other than this exchange of pictures, but that his saw it and yelled at him and went to work. She came back and continued yelling at him and then when she left for work this last time, he started drinking and then this event where he sent a mass text saying he was going to kill himself occurred, and that is what brings him here today. He reports that he has been feeling depressed, and there is a lot of stress at work, especially given the current circumstances, but overall as well. We discussed the risks, benefits, and alternatives of increasing his Prozac, and he understood and agreed to proceed as is documented in this note. PSYCHIATRIC HISTORY: As above. SUBSTANCE ABUSE HISTORY: He does smoke about a half pack of cigarettes a day. Now alcohol is once every two weeks, or maybe once a week, depending on the situation, but when he drinks he drinks heavily. This event his blood alcohol level was 361. He denies marijuana, or any other illicit drug use. He has been to a couple of rehabs. He has had one DUI. FAMILY HISTORY: He endorses non-contributory. DEVELOPMENTAL HISTORY: He denies any issues with his mother?s or delivery of him. He learned how to walk and talk and met all developmental milestones on time. He reports that he did not need speech therapy, learning support, emotional support, or special education classes. PSYCHOSOCIAL HISTORY: He reports his mom and dad were together when he was born. He does have siblings. His childhood was decent. He graduated from high school. He went to college. He endorses being a heterosexual, with the longest relationship being about twenty one years, at the end of this year. He has been once. He has had two children, one who in 2000 and would be almost 21 years old, and they have a 17 year old. He has never been in the . He denies significant christianity activity. 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 He currently lives in a house with his and child. LEGAL HISTORY: He has never been in senior living. MEDICAL HISTORY: He denies any significant medical issues. Hospital Course Tina presented to the emergency room intoxicated and endorsing thoughts to hurt himself/kill himself. This is second presentation with similar concerns. However he also reported that a significant rift between him and his was really adding to these thoughts bringing him to the hospital. He was admitted to the neuro psych unit to manage these concerns. He acclimated to the individual and milieu therapies provided. We increase his Prozac to 40 mg p.o. every morning and initiated naltrexone 50 mg p.o. every morning and he adjusted to these medications well. He filled out the forms to get connected with outpatient treatment services. He and his decided to work the issues that they have been fighting about out and he was feeling more optimistic about facing the challenges of the future. Additionally we discussed him working with his therapist on bereavement issues that have likely not been truly addressed. During the hospitalization he had routine laboratory studies which were within normal limits except for a few outliers. Additionally he had a general medical evaluation which was also within normal limits and revealed no new acute processes outside of intoxication and withdrawal. Discharge Summary At the time of discharge, he denied any lethality and was absent psychosis. Mood and anxiety were well managed and he endorsed a plan to avoid all drugs of abuse, and follow-up with the recommended post hospital services. He was evaluated and deemed to be absent credible lethality and had received the maximum benefit from an inpatient hospitalization, so was discharged. Hospital Course Hospital Course During the hospitalization, the patient had routine laboratory studies which were within normal limits except for a few outliers.? Additionally, there was a general medical evaluation which was also within normal limits and revealed no new acute processes.? At the time of discharge, lethality was denied and psychosis was resolving.? Mood and anxiety were well managed.? The patient endorsed a plan to avoid all drugs of abuse and follow up with the aftercare recommendations of the treatment team.? The patient was evaluated and deemed to be absent credible lethality and had achieved the maximum benefit from an inpatient hospitalization, and so was discharged. ?He had no signs of alcohol related withdrawal. He was agreeable to inpatient substance abuse treatment to target alcohol dependence and transferred to [facility] in [place]. Involuntary Hold Information 96 Hour Hold: 96 Hour Involuntary Admission: No Mental Status Exam MSE Comments: This is an obese, white male, with poor grooming, rosanna complexion. No abnormal involuntary motor movements, except for mild psychomotor retardation. Cooperative with exam in no acute distress. Speech was normal rate and volume. Mood described as okay; affect was mood incongruent and mildly restricted. Thought process was linear and organized. Thought content: patient denied any suicidal or homicidal ideation, There were no delusions reported or noted, patient denied any auditory or visual hallucinations. Attention, concentration, and memory appear intact but were not formally tested. He is alert and oriented times three. Insight was poor, judgment was limited. His impulse control was poor/average. Discharge Data Studies Completed and Pending: Completed Studies During Hospitalization Category Date Time Status CT head wo con* [id number] Stat Cat Scan 08/16/24 07:40 Completed XR chest 1V micheal ble [id number] Stat Exams 08/16/24 08:21 Completed Radiology Impressions Head CT 08/16/24 07:40 IMPRESSION: No acute intracranial abnormality. Chest X-Ray 08/16/24 08:21 IMPRESSION: No acute cardiopulmonary abnormality identified. Laboratory Results WBC 6.84 10^3/uL (3.2 9-11.43) 08/17/24 02:44 RBC 5.17 10^6/uL (3.8 5-5.65) 08/17/24 02:44 Hgb 17.90 g/dL (11.27 -16.99) H 08/17/24 02:44 Hct 49.9 % (37-53) 08/17/24 02:44 MCV 96.5 fl (82-101) 08/17/24 02:44 MCH 34.6 pg (27-33) H 08/17/24 02:44 MCHC 35.9 g/dL (30-55) 08/17/24 02:44 RDW 12.6 % (12.1-15.1 ) 08/17/24 02:44 Plt Count 150 10^3/cmm (157 -399) L 08/17/24 02:44 MPV 10.3 fL (7.4-10.4 ) 08/17/24 02:44 Neut % (Auto) 70.7 % 08/17/24 02:44 Lymph % (Auto) 20.3 % 08/17/24 02:44 [place] % (Auto) 6.7 % 08/17/24 02:44 Eos % (Auto) 1.3 % 08/17/24 02:44 Baso % (Auto) 0.7 % 08/17/24 02:44 Neut # (Auto) 4.83 10^3/uL (1.8 -7.7) 08/17/24 02:44 Lymph # (Auto) 1.4 10^3/uL (0.8- 4.8) 08/17/24 02:44 [place] # (Auto) 0.5 10^3/uL (0.2- 0.9) 08/17/24 02:44 Eos # (Auto) 0.1 10^3/uL (0.0- 0.8) 08/17/24 02:44 Baso # (Auto) 0.1 10^3/uL (0.0- 0.1) 08/17/24 02:44 Nucleated RBC % (a uto) 0 % 08/17/24 02:44 Nucleated RBCs # 0.0 /100WBC 08/17/24 02:44 Specimen Type Venous 08/16/24 08:57 Sample Site Not Reportable 08/16/24 08:57 Jonathan Test N/a 08/16/24 08:57 VBG pH 7.29 (7.32-7.42) L 08/16/24 08:57 VBG pCO2 49.7 mmHg (41-51) 08/16/24 08:57 VBG pO2 47.7 mmHg (25-40) H 08/16/24 08:57 VBG HCO3 24.1 mmol/L (24-2 8) 08/16/24 08:57 VBG Base Excess -3.2 mmol/L (-3.0 -3.0) L 08/16/24 08:57 VBG Hematocrit 53.9 % (42-52) H 08/16/24 08:57 O2 Delivery Device Room air 08/16/24 08:57 FiO2 21.0 % 08/16/24 08:57 Cupola Tender Helper ID Cak 08/16/24 08:57 Sodium 138 mmol/L (136-1 45) 08/17/24 02:44 Potassium 4.1 mmol/L (3.5-5 .1) 08/17/24 02:44 Chloride 102 mmol/L (98-10 7) 08/17/24 02:44 Carbon Dioxide 23 mmol/L (22-29) 08/17/24 02:44 Anion Gap 17.1 (5-19) 08/17/24 02:44 BUN 9 mg/dL (6-20) 08/17/24 02:44 Creatinine 0.7 mg/dL (0.7-1. 2) 08/17/24 02:44 GFR Calculation 122.5 mL/min (90- 130) 08/17/24 02:44 Glucose 80 mg/dL (65-115) 08/17/24 02:44 POC Glucose 82 mg/dL (70-110) 08/16/24 07:17 Calculated Osmolal ity 284 mOsm/kg (285- 295) L 08/17/24 02:44 Lactic Acid 3.0 mmol/L (0.5-2 .2) H 08/16/24 07:21 Lactic Acid (Sepsi s) 4.4 mmol/L (0.5-2 .2) H* 08/16/24 10:24 Calcium 8.4 mg/dL (8.5-10 .5) L 08/17/24 02:44 Phosphorus 2.3 mg/dL (2.5-4. 5) L 08/17/24 02:44 Magnesium 1.5 mg/dL (1.7-2. 3) L 08/17/24 02:44 Total Bilirubin 0.3 mg/dL (0.15-1 .2) 08/16/24 07:21 AST 23 U/L (0-40) 08/16/24 07:21 ALT 21 U/L (0-41) 08/16/24 07:21 Alkaline Phosphata se 68 U/L (40-130) 08/16/24 07:21 Creatine Kinase 243 U/L (39-308) 08/16/24 07:21 Total Protein 7.4 g/dL (6.6-8.7 ) 08/16/24 07:21 Albumin 4.4 g/dL (3.5-5.2 ) 08/16/24 07:21 Globulin 3.0 g/dL (1.3-4.6 ) 08/16/24 07:21 Urine Color Yellow (Yellow) 08/16/24 07:20 Urine Appearance Clear (CLEAR) 08/16/24 07:20 Urine pH 5 (5-7) 08/16/24 07:20 Ur Specific Gravit y 1.010 (1.005-1.0 30) 08/16/24 07:20 Urine Protein Neg (Negative) 08/16/24 07:20 Urine Glucose (UA) Norm (Normal) 08/16/24 07:20 Urine Ketones Negative (Negati ve) 08/16/24 07:20 Urine Blood Neg (Negative) 08/16/24 07:20 Urine Nitrate Negative (Negati ve) 08/16/24 07:20 Urine Bilirubin Neg (Negative) 08/16/24 07:20 Urine Urobilinogen Neg mg/dL (Negati ve) 08/16/24 07:20 Ur Leukocyte Ronel ase Negative (Negati ve) 08/16/24 07:20 Amorphous Sediment Not Reportable 08/16/24 07:20 Salicylates < 0.3 mg/dL (3-10 ) L 08/16/24 07:21 Urine Opiates Scre en Negative ng/mL (N egative) 08/16/24 07:20 Acetaminophen < 5.0 ug/mL (10-3 0) L 08/16/24 07:21 Ur Barbiturates Sc reen Negative ng/mL (N egative) 08/16/24 07:20 Ur Phencyclidine S crn Negative ng/mL (N egative) 08/16/24 07:20 Ur Amphetamines Sc reen Negative ng/mL (N egative) 08/16/24 07:20 U Benzodiazepines Scrn Negative ng/mL (N egative) 08/16/24 07:20 Urine Cocaine Scre en Negative ng/mL (N egative) 08/16/24 07:20 U Marijuana (THC) Screen Positive ng/mL (N egative) H 08/16/24 07:20 Ethyl Alcohol 384 mg/dL (0-10) H* 08/16/24 07:21 Vitals: Last Vital Signs Temp 97.8 F 08/19/24 04:00 Pulse 79 08/19/24 08:00 Resp 17 08/19/24 08:00 BP 137/94 08/19/24 08:00 Pulse Ox 98 08/19/24 08:00 O2 Del Method Room Air 08/19/24 04:00 O2 Flow Rate 2 08/16/24 08:30 Discharge Plan Discharge Patient Disposition: Home Condition: Stable Prescriptions: New fluoxetine 20 mg Capsule 20 mg PO DAILY 30 Days Qty: 30 1RF metoprolol tartrate 50 mg Tablet 100 mg PO BID 30 Days Qty: 120 1RF terazosin 1 mg Capsule 2 mg PO DAILY 30 Days Qty: 60 1RF magnesium oxide 400 mg (241.3 mg magnesium) Tablet 400 mg PO BID 30 Days Qty: 60 1RF Continued terazosin 2 mg capsule 2 mg PO DAILY Qty: 30 11RF aspirin 81 mg tablet,delayed release (DR/EC) 81 mg PO DAILY 30 Days Qty: 30 1RF Discontinued metoprolol tartrate 50 mg tablet See Rx Instructions .ROUTE .COMPLEX Qty: 180 3RF Dose Instruction: Take 1 tablet by mouth twice daily Rx Instructions: Take 1 tablet by mouth twice daily Discharge Orders: Discharge Order (Routine); Ordered 08/19/24 Ordered By: Rene Sol Referrals: [facility] [Other] - 08/19/24 2:00 pm (You need to go to [facility] [place] [address] ? to check in. ) Cody Pickens MD [Primary Care Provider] - Discharge Diet: Usual diet Discharge Activity: Resume usual activity Patient Instructions: Alcohol Abuse, Metoprolol (By mouth), Fluoxetine (By mouth), Magnesium Oxide (By mouth), Altered Mental Status (ED), Suicide Prevention (DC), Opioid Safety Discharge Attestations NPU Time Spent in Discharge Care*: less than 30 min Specific Discharge Activities: Specific discharge activities: educating patient, discussing with piano case and bench assembler/social workers/dc planners and documenting/other paperwork Coding Level of Care Code Acute Code for Chg Fwd Diagnoses Alcohol intoxication F10.929 Overdose T50.902A Encounter type: initial encounter Injury intent: intentional self-harm Suicidal ideation R45.851 Major depress dis, severe F32.2 Bereavement Z63.4 Alcohol use disorder, severe, dependence F10.20 Anxiety F41.9
[2024-08-19 10:41] VITALS: BP 137/94; PULSE 79; RESP 17; O2SAT 98
== END 2024-08-19 11:35 | disposition home or self-care (01) | DRG 897 ==
LOC: ER 11:44 → MEDSURG 08-17 04:52 → NP 08-17 15:47
PROVIDERS: Admitting Provider Internal Medicine; Emergency Provider Emergency Medicine; Family Provider Family Medicine; PCP Family Medicine; Visit Provider Family Medicine
DX: F10.221 Alcohol dependence with intoxication delirium (principal); F33.2 Major depressive disorder, recurrent severe without psychotic features; R45.851 Suicidal ideations; Y90.8 Blood alcohol level of 240 mg/100 ml or more; F41.9 Anxiety disorder, unspecified; I10 Essential (primary) hypertension; I48.91 Unspecified atrial fibrillation; E87.6 Hypokalemia; R74.02 Elevation of levels of lactic acid dehydrogenase [LDH]; Z79.82 Long term (current) use of aspirin; Z63.4 Disappearance and death of family member
CPT/HCPCS: 36415; 36416; 70450; 71045; 80048; 80053; 80306; 80307; 81003; 82550; 82803; 82962; 83605; 83735; 84100; 85025; 93005; 96372; 96374; 96375; 97150; 97165; 99285; 99291; 99292; J1630; J2060; J2470; J3411; J7030; J7120